=== PATIENT | female | born 1975 | race American Indian/Alaskan Native ===

== ENCOUNTER 2020-05-26 11:08 | Inpatient (IN) | payer OTHER ==
[2020-05-26] MEDS: traZODone 50 MG TAB PO SCH (22:48)
[2020-05-26] MEDS: MELATONIN 5 MG TAB PO PRN (22:48)
[2020-05-26] MEDS: OMEGA-3 FATTY ACIDS/FISH OIL 1 GRAM CAP PO SCH (22:48)
[2020-05-26] MEDS ORDERED: atenoloL 50 MG TAB PO SCH (23:10)
[2020-05-27 00:33] LABS: Basophils % (Auto) 0.3 % (0.0-1.8); Eosinophils # (Auto) 0.1 K/mm3 (0.0-0.4); Eosinophils % (Auto) 0.7 % (0.0-4.3); Hematocrit 42.5 % (30.3-42.9); Hemoglobin 14.3 gm/dl (10.1-14.3); Lymphocytes # (Auto) 2.3 K/mm3 (1.2-5.4); Lymphocytes % (Auto) 25.5 % (13.4-35.0); Mean Corpuscular HGB Conc 34 % (30-34); Mean Corpuscular Volume 87 fl (79-97); Monocytes # (Auto) 0.5 K/mm3 (0.0-0.8); Monocytes % (Auto) 5.6 % (0.0-7.3); Platelet Count 240 K/mm3 (140-440); Red Blood Count 4.87 M/mm3 (3.65-5.03); Red Cell Distribution Width 13.9 % (13.2-15.2)
[2020-05-27 04:05] LABS: Alanine Aminotransferase 16 units/L (7-56); Albumin 4.7 g/dL (3.9-5); BUN/Creatinine Ratio 13; Blood Urea Nitrogen 10 mg/dL (7-17); Calcium 9.3 mg/dL (8.4-10.2); HDL Cholesterol 56 mg/dL (40-59); Hemolysis Index 4; LDL Cholesterol,Direct 102 mg/dL (50-130)
--- NOTE | 2020-05-27 09:14 | History and Physical Report ---
GP History & Physical - History of Present Illness Date of admission: 05/26/20 Date of Examination: 05/27/20 Reason for Admission: Danger to self, Severe anxiety/depression History of Present Illness: HPI Patient is a 45-year-old employed, -[place] female with child currently resides with who was admitted from another hospital emergency department in which she had initially presented with overdose. 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 Review of medical records from outside facility, patient reported taking 89 of Xanax around 5 PM on the day of presentation, because of generalized feeling of being overwhelmed and tired of everything that she just wanted to end it all. PAST PSYCHIATRIC HISTORY Diagnoses: Depression and Anxiety Suicide attempts or Self-harm behavior: New incident Prior psychiatric hospitalizations: no Substance Abuse history: none reported Previous psychiatric medications tried: Xanax Outpatient treatment: none, desire for one PAST MEDICAL HISTORY: Asthma and HTN Family Psychiatric History: None reported or documented SOCIAL HISTORY Marital Status: Living Arrangements: with Employment Status: Employed Access to guns/weapons: none reported Education: Masters History of Abuse: none Legal History: yes REVIEW OF SYSTEMS Constitutional: Negative for weight loss ENT: Negative for stridor Respiratory: Negative for cough or hemoptysis All other systems reviewed and are negative MENTAL STATUS EXAMINATION General Appearance and Behavior: Age appropriate, good hygiene, wearing appropriate clothes, good eye contact, cooperative polite with questioning. Cooperation: Participating/engaged Psychomotor Behavior: unremarkable and within normal limits Mood: Good Affect and affective range: congruent with mood Thought Process: Fluent/Logical, Thought Content: Within reality, Speech: Normal volume, Regular rate and rhythm, Intellectual Functioning: Average Suicidal Ideation: Denies SI Homicidal Ideation: Denies HI Impulse Control: Unimpaired Insight and Judgment: Normal insight and judgment, Memory: Normal, Attention: Normal, Orientation: Alert, oriented and anxious Assessment and Plan - Psychiatric problem (1) Depressed Current Visit: Yes Status: Acute F32.9 Treatment Plan Monitor for observation Patient admitted for inpatient psychiatric evaluation, medication adjustment and close monitoring The patient's behavior, mood, sleep and appetite will be closely monitored. Patient enrolled in individual and group therapeutic sessions and encouraged to attend. Patient provided with a safe and structured environment. Patient's physical health needs will be addressed by the Hospitalist. Hospitalist Consulted Labs including CBC, CMP, Lipid profile and Hemoglobin A1C levels ordered for baseline reference Social Assessment will be completed and the Director Global Sales will work with patient and family to ensure a suitable and safe disposition Medication adjustment will be made as clinically indicated Usual Wellness Anabaptist/Preservation: - Start Trazodone 50 mg po QHS & 50 mg po QHS PRN between 10 PM & 2 AM for insomnia - Start Melatonin 5 mg po QHS to promote circadian rhythm - Start [place]-3 for brain health, reduce impulsivity, and as adjunctive treatment for mood disorder, continue upon discharge given overall benefits. - Start B1 prophylaxis with 200 mg po for 5 days The patient agreed on the treatment plan, understood the risk, benefit, alternative treatment, potential consequence of no treatment, and gave informed consent. Initial Certification Inpatient psych services: I certify that the inpatient psychiatric services are required for treatment that could reasonably be expected to improve the patient's condition. Estimated days: 7 Post hospital care: primary care provider, psychiatric provider Legal Status: Voluntary Patient Problems: Current Active Problems Depressed (Acute) Reaction to Hospitalization: Accepting Medications and Allergies Allergies Allergy/AdvReac Type Severity Reaction Status Date / Time Penicillins Allergy Unknown Unknown Verified 05/26/20 21:47 Home Medications Medication Instructions Recorded Confirmed Last Taken Type ALPRAZolam [Xanax TAB] 0.25 mg PO TID PRN 05/27/20 05/27/20 Unknown History atenoloL [Tenormin] 50 mg PO QHS 05/27/20 05/27/20 Unknown History traZODone [Desyrel] 150 mg PO QHS 05/27/20 05/27/20 Unknown History Active Meds: Active Medications Atenolol (Atenolol 50 Mg Tab) 50 mg PO HS [facility] Last Admin: 05/26/20 23:07 Dose: 50 mg Documented by: Fish Oil ([place]-3 Fatty Acids/Fish Oil 1 Gram Cap) 2,000 mg PO BID [facility] Last Admin: 05/26/20 22:48 Dose: 2,000 mg Documented by: Fluoxetine HCl (Fluoxetine 10 Mg Tab) 10 mg PO QDAY [facility] Melatonin (Melatonin 5 Mg Tab) 5 mg PO QHS PRN PRN Reason: Sleep Last Admin: 05/26/20 22:48 Dose: 5 mg Documented by: Trazodone HCl (Trazodone 50 Mg Tab) 50 mg PO QHS [facility] Last Admin: 05/26/20 22:48 Dose: 50 mg Documented by: Results - Results Labs/Vitals: Laboratory Last Values WBC 9.0 K/mm3 (4.5-11.0) 05/26/20 23:24 RBC 4.87 M/mm3 (3.65-5.03) 05/26/20 23:24 Hgb 14.3 gm/dl (10.1-14.3) 05/26/20 23:24 Hct 42.5 % (30.3-42.9) 05/26/20 23:24 MCV 87 fl (79-97) 05/26/20 23:24 MCH 29 pg (28-32) 05/26/20 23:24 MCHC 34 % (30-34) 05/26/20 23:24 RDW 13.9 % (13.2-15.2) 05/26/20 23:24 Plt Count 240 K/mm3 (140-440) 05/26/20 23:24 Lymph % (Auto) 25.5 % (13.4-35.0) 05/26/20 23:24 [place] % (Auto) 5.6 % (0.0-7.3) 05/26/20 23:24 Eos % (Auto) 0.7 % (0.0-4.3) 05/26/20 23:24 Baso % (Auto) 0.3 % (0.0-1.8) 05/26/20 23:24 Lymph # (Auto) 2.3 K/mm3 (1.2-5.4) 05/26/20 23:24 [place] # (Auto) 0.5 K/mm3 (0.0-0.8) 05/26/20 23:24 Eos # (Auto) 0.1 K/mm3 (0.0-0.4) 05/26/20 23:24 Baso # (Auto) 0.0 K/mm3 (0.0-0.1) 05/26/20 23:24 Seg Neutrophils % 67.9 % (40.0-70.0) 05/26/20 23:24 Seg Neutrophils # 6.1 K/mm3 (1.8-7.7) 05/26/20 23:24 Sodium 134 mmol/L (137-145) L 05/26/20 23:24 Potassium 3.8 mmol/L (3.6-5.0) 05/26/20 23:24 Chloride 100.3 mmol/L (98-107) 05/26/20 23:24 Carbon Dioxide 20 mmol/L (22-30) L 05/26/20 23:24 Anion Gap 18 mmol/L 05/26/20 23:24 BUN 10 mg/dL (7-17) 05/26/20 23:24 Creatinine 0.8 mg/dL (0.6-1.2) 05/26/20 23:24 Estimated GFR > 60 ml/min 05/26/20 23:24 BUN/Creatinine Ratio 13 % 05/26/20 23:24 Glucose 149 mg/dL (65-100) H 05/26/20 23:24 POC Glucose 90 mg/dL (70-105) 05/26/20 22:09 Hemoglobin A1c 5.9 % (4-6) 05/26/20 23:24 Calcium 9.3 mg/dL (8.4-10.2) 05/26/20 23:24 Total Bilirubin 0.30 mg/dL (0.1-1.2) 05/26/20 23:24 AST 16 units/L (5-40) 05/26/20 23:24 ALT 16 units/L (7-56) 05/26/20 23:24 Alkaline Phosphatase 62 units/L (35-129) 05/26/20 23:24 Total Protein 8.1 g/dL (6.3-8.2) 05/26/20 23:24 Albumin 4.7 g/dL (3.9-5) 05/26/20 23:24 Albumin/Globulin Ratio 1.4 % 05/26/20 23:24 Triglycerides 40 mg/dL (2-149) 05/26/20 23:24 Cholesterol 157 mg/dL (50-199) 05/26/20 23:24 LDL Cholesterol Direct 102 mg/dL (50-130) 05/26/20 23:24 HDL Cholesterol 56 mg/dL (40-59) 05/26/20 23:24 Cholesterol/HDL Ratio 2.80 % 05/26/20 23:24 TSH 1.550 mlU/mL (0.270-4.200) 05/26/20 23:24 Last Vital Signs Temp 98.5 F 05/27/20 07:53 Pulse 83 05/27/20 07:53 Resp 18 05/27/20 07:53 BP 131/92 05/27/20 07:53 Pulse Ox 99 05/27/20 07:53 Physical Examination - Constitutional Vitals: Vital Signs Temp Pulse Resp BP Pulse Ox 98.5 F 83 18 131/92 99 05/27/20 07:53 05/27/20 07:53 05/27/20 07:53 05/27/20 07:53 05/27/20 07:53 Temperature -Last 24 Hours Temperature 98.5 F Temperature 98.8 F Mental Status Exam - Vital signs Last Vital Signs Temp 98.5 F 05/27/20 07:53 Pulse 83 05/27/20 07:53 Resp 18 05/27/20 07:53 BP 131/92 05/27/20 07:53 Pulse Ox 99 05/27/20 07:53 Assessment and Plan - Psychiatric problem (1) Depressed Current Visit: Yes Status: Acute Physician Certification - Certification Statement Physician Certification Statement: This is an acknowledgement statement that EMIGDIO HERNANDEZ is a 45 year old F who requires inpatient psychiatric admission for treatment which could reasonably be expected to improve the patient's condition for Estimated period of time patient will need to remain in the hospital: [ ] Plan for post-hospital care: [ ]
[2020-05-27] MEDS: OMEGA-3 FATTY ACIDS/FISH OIL 1 GRAM CAP PO SCH ×2 (09:15→21:10)
[2020-05-27] MEDS ORDERED: FLUoxetine 10 MG TAB PO SCH (10:00)
[2020-05-27] MEDS: SERTRALINE 25 MG TAB PO SCH (10:33)
[2020-05-27] MEDS ORDERED: ALPRAZolam 0.25 MG TAB PO PRN (11:00)
--- NOTE | 2020-05-27 15:42 | Consultation ---
History of Present Illness - Reason for Consult Consult date: 05/27/20 medical Management Requesting physician: SUNIL NORMAN - History of Present Illness 45 YO Female with HTN, Obesity, Depression admitted to [facility] for psychiatric stabilization. Consult placed by Dr. Norman for medical management. Pt seen and evaluated in the recreation room. Pt denies fever, chills, chest pain, palpitations, productive cough, skin rash, recent ill contacts, or known e xposure to COVID 19. No reported nursing events. Past History Past Medical History: hypertension, other (see hpi) Past Surgical History: No surgical history, Other (reviewed) Social history: single. denies: smoking, alcohol abuse Family history: diabetes, hypertension Medications and Allergies Allergies Allergy/AdvReac Type Severity Reaction Status Date / Time Penicillins Allergy Unknown Unknown Verified 05/26/20 21:47 Home Medications Medication Instructions Recorded Confirmed Last Taken Type ALPRAZolam [Xanax TAB] 0.25 mg PO TID PRN 05/27/20 05/27/20 Unknown History atenoloL [Tenormin] 50 mg PO QHS 05/27/20 05/27/20 Unknown History traZODone [Desyrel] 150 mg PO QHS 05/27/20 05/27/20 Unknown History Active Meds: Active Medications Alprazolam (Alprazolam 0.25 Mg Tab) 0.25 mg PO Q8H PRN PRN Reason: Anxiety Atenolol (Atenolol 50 Mg Tab) 50 mg PO HS [facility] Last Admin: 05/26/20 23:07 Dose: 50 mg Documented by: Fish Oil ([place]-3 Fatty Acids/Fish Oil 1 Gram Cap) 2,000 mg PO BID [facility] Last Admin: 05/27/20 09:15 Dose: 2,000 mg Documented by: Melatonin (Melatonin 5 Mg Tab) 5 mg PO QHS PRN PRN Reason: Sleep Last Admin: 05/26/20 22:48 Dose: 5 mg Documented by: Sertraline HCl (Sertraline 25 Mg Tab) 25 mg PO QDAY [facility] Last Admin: 05/27/20 10:33 Dose: 25 mg Documented by: Trazodone HCl (Trazodone 50 Mg Tab) 50 mg PO QHS [facility] Last Admin: 05/26/20 22:48 Dose: 50 mg Documented by: Review of Systems Constitutional: no weight loss, no weight gain, no fever, no chills Ears, nose, mouth and throat: no ear pain, no ear discharge, no tinnitis, no nose pain Breasts: no change in shape, no swelling, no mass Cardiovascular: no chest pain, no orthopnea, no palpitations, no rapid/irregular heart beat, no edema, no syncope, no lightheadedness Respiratory: no cough, no excessive sputum, no hemoptysis, no shortness of breath Gastrointestinal: no abdominal pain, no nausea, no vomiting, no constipation Genitourinary Female: no pelvic pain, no flank pain, no dysuria, no urinary frequency, no urgency Rectal: no pain, no incontinence, no bleeding Musculoskeletal: no neck stiffness, no neck pain, no shooting arm pain, no arm numbness/tingling, no shooting leg pain, no redness of joints Integumentary: no rash, no pruritis, no redness, no sores, no wounds, no jaundice, no boils Neurological: no head injury, no paralysis, no parathesias, no numbness, no tingling, no seizures, no syncope Psychiatric: depression, no anxiety, no sleep disturbances, no insomnia, no hypersomnia, no change in libido, no suicidal ideation Endocrine: no polyphagia, no flushing Hematologic/Lymphatic: no easy bleeding, no lymphadenopathy Allergic/Immunologic: no urticaria, no persistent infections, no anaphylaxis, no angioedema Exam - Constitutional Vitals: Temp Pulse Resp BP Pulse Ox 98.5 F 83 18 131/92 99 05/27/20 07:53 05/27/20 07:53 05/27/20 07:53 05/27/20 07:53 05/27/20 07:53 General appearance: Present: no acute distress, well-nourished - EENT Eyes: Present: PERRL ENT: hearing intact, clear oral mucosa - Neck Neck: Present: supple, normal ROM - Respiratory Respiratory effort: normal Respiratory: bilateral: CTA - Cardiovascular Heart Sounds: Present: S1 & S2. Absent: rub, click - Extremities Extremities: pulses symmetrical, No edema Peripheral Pulses: within normal limits - Abdominal General gastrointestinal: Present: soft, non-tender, non-distended, normal bowel sounds Female genitourinary: Present: normal - Integumentary Integumentary: Present: clear, warm, dry - Musculoskeletal Musculoskeletal: gait normal, strength equal bilaterally - Psychiatric Psychiatric: appropriate mood/affect, intact judgment & insight - Neurologic Neurologic: CNII-XII intact, moves all extremities Results - Labs CBC & Chem 7: 05/26/20 23:24 05/26/20 23:24 Labs: Abnormal lab results 05/26/20 Range/Units 23:24 Sodium 134 L (137-145) mmol/L Carbon Dioxide 20 L (22-30) mmol/L Glucose 149 H (65-100) mg/dL Assessment and Plan - Patient Problems (1) HTN (hypertension) Current Visit: Yes Status: Acute Qualifiers: Hypertension type: essential hypertension Qualified Code(s): I10 - Essential (primary) hypertension Plan to address problem: Monitor BP q shift, continue medical management. (2) GERD (gastroesophageal reflux disease) Current Visit: Yes Status: Acute Qualifiers: Esophagitis presence: without esophagitis Qualified Code(s): K21.9 - Gastro-esophageal reflux disease without esophagitis Plan to address problem: PPI therapy, supportive care.
[2020-05-27] MEDS: atenoloL 50 MG TAB PO SCH (21:09)
[2020-05-27] MEDS: traZODone 50 MG TAB PO SCH (21:10)
[2020-05-28] MEDS: SERTRALINE 25 MG TAB PO SCH (09:05)
[2020-05-28] MEDS: OMEGA-3 FATTY ACIDS/FISH OIL 1 GRAM CAP PO SCH ×2 (09:05→21:09)
--- NOTE | 2020-05-28 09:32 | Progress Note ---
Subjective Date of service: 05/28/20 Principal diagnosis: MHE Subjective Comment: Psych NUrse: Pt received sitting quietly in the activity room. A&OX4. Denies pain, SI, and HI. No acute distress or behavioral issue observed. Will continue to monitor. Psych Progress Patient seen this a.m., patient denies any mood disturbances, denies SI HI auditory visual hallucinations. Patient does state that she did not sleep well overnight and did not seem trazodone that she was given her helped with sleep much otherwise she has no other acute complaints this AM. Reason for continued psych inpatient hospitalization: Planning for safety discharge REVIEW OF SYSTEMS Constitutional: Negative for weight loss ENT: Negative for stridor Respiratory: Negative for cough or hemoptysis All other systems reviewed and are negative MENTAL STATUS EXAMINATION General Appearance and Behavior: Age appropriate, good hygiene, wearing appropriate clothes, good eye contact, cooperative polite with questioning. Cooperation: Participating/engaged Psychomotor Behavior: unremarkable and within normal limits Mood: Good Affect and affective range: congruent with mood Thought Process: Fluent/Logical, Thought Content: Within reality, Speech: Normal volume, Regular rate and rhythm, Intellectual Functioning: Average Suicidal Ideation: Denies SI Homicidal Ideation: Denies HI Impulse Control: Unimpaired Insight and Judgment: Normal insight and judgment, Memory: Normal, Attention: Normal, Orientation: Alert, oriented and anxious Assessment and Plan - Psychiatric problem (1) Depressed Current Visit: Yes Status: Acute F32.9 Treatment Plan Monitor for observation Patient admitted for inpatient psychiatric evaluation, medication adjustment and close monitoring The patient's behavior, mood, sleep and appetite will be closely monitored. Patient enrolled in individual and group therapeutic sessions and encouraged to attend. Patient provided with a safe and structured environment. Patient's physical health needs will be addressed by the Hospitalist. Hospitalist Consulted Labs including CBC, CMP, Lipid profile and Hemoglobin A1C levels ordered for baseline reference Social Assessment will be completed and the Coat Check Attendant will work with patient and family to ensure a suitable and safe disposition Medication adjustment will be made as clinically indicated Usual Wellness Scientology/Preservation: - Start Trazodone 50 mg po QHS & 50 mg po QHS PRN between 10 PM & 2 AM for insomnia - Start Melatonin 5 mg po QHS to promote circadian rhythm - Start [place]-3 for brain health, reduce impulsivity, and as adjunctive treatment for mood disorder, continue upon discharge given overall benefits. - Start B1 prophylaxis with 200 mg po for 5 days The patient agreed on the treatment plan, understood the risk, benefit, alternative treatment, potential consequence of no treatment, and gave informed consent. Initial Certification Inpatient psych services: I certify that the inpatient psychiatric services are required for treatment that could reasonably be expected to improve the patient's condition. Estimated days: 7 Post hospital care: primary care provider, psychiatric provider Assessment and Plan - Patient Problems (1) Depressed Current Visit: Yes Status: Acute Medications and Allergies Allergies Allergy/AdvReac Type Severity Reaction Status Date / Time Penicillins Allergy Unknown Unknown Verified 05/26/20 21:47 Home Medications Medication Instructions Recorded Confirmed Last Taken Type ALPRAZolam [Xanax TAB] 0.25 mg PO TID PRN 05/27/20 05/27/20 Unknown History atenoloL [Tenormin] 50 mg PO QHS 05/27/20 05/27/20 Unknown History traZODone [Desyrel] 150 mg PO QHS 05/27/20 05/27/20 Unknown History Active Meds: Active Medications Alprazolam (Alprazolam 0.25 Mg Tab) 0.25 mg PO Q8H PRN PRN Reason: Anxiety Atenolol (Atenolol 50 Mg Tab) 50 mg PO QHS [facility] Last Admin: 05/27/20 21:09 Dose: 50 mg Documented by: Fish Oil ([place]-3 Fatty Acids/Fish Oil 1 Gram Cap) 2,000 mg PO BID [facility] Last Admin: 05/28/20 09:05 Dose: 2,000 mg Documented by: Melatonin (Melatonin 5 Mg Tab) 5 mg PO QHS PRN PRN Reason: Sleep Last Admin: 05/26/20 22:48 Dose: 5 mg Documented by: Sertraline HCl (Sertraline 25 Mg Tab) 25 mg PO QDAY [facility] Last Admin: 05/28/20 09:05 Dose: 25 mg Documented by: Trazodone HCl (Trazodone 50 Mg Tab) 50 mg PO QHS [facility] Last Admin: 05/27/20 21:10 Dose: 50 mg Documented by: Results - Results Labs/Vitals: Laboratory Last Values WBC 9.0 K/mm3 (4.5-11.0) 05/26/20 23:24 RBC 4.87 M/mm3 (3.65-5.03) 05/26/20 23:24 Hgb 14.3 gm/dl (10.1-14.3) 05/26/20 23:24 Hct 42.5 % (30.3-42.9) 05/26/20 23:24 MCV 87 fl (79-97) 05/26/20 23:24 MCH 29 pg (28-32) 05/26/20 23:24 MCHC 34 % (30-34) 05/26/20 23:24 RDW 13.9 % (13.2-15.2) 05/26/20 23:24 Plt Count 240 K/mm3 (140-440) 05/26/20 23:24 Lymph % (Auto) 25.5 % (13.4-35.0) 05/26/20 23:24 [place] % (Auto) 5.6 % (0.0-7.3) 05/26/20 23:24 Eos % (Auto) 0.7 % (0.0-4.3) 05/26/20 23:24 Baso % (Auto) 0.3 % (0.0-1.8) 05/26/20 23:24 Lymph # (Auto) 2.3 K/mm3 (1.2-5.4) 05/26/20 23:24 [place] # (Auto) 0.5 K/mm3 (0.0-0.8) 05/26/20 23:24 Eos # (Auto) 0.1 K/mm3 (0.0-0.4) 05/26/20 23:24 Baso # (Auto) 0.0 K/mm3 (0.0-0.1) 05/26/20 23:24 Seg Neutrophils % 67.9 % (40.0-70.0) 05/26/20 23:24 Seg Neutrophils # 6.1 K/mm3 (1.8-7.7) 05/26/20 23:24 Sodium 134 mmol/L (137-145) L 05/26/20 23:24 Potassium 3.8 mmol/L (3.6-5.0) 05/26/20 23:24 Chloride 100.3 mmol/L (98-107) 05/26/20 23:24 Carbon Dioxide 20 mmol/L (22-30) L 05/26/20 23:24 Anion Gap 18 mmol/L 05/26/20 23:24 BUN 10 mg/dL (7-17) 05/26/20 23:24 Creatinine 0.8 mg/dL (0.6-1.2) 05/26/20 23:24 Estimated GFR > 60 ml/min 05/26/20 23:24 BUN/Creatinine Ratio 13 % 05/26/20 23:24 Glucose 149 mg/dL (65-100) H 05/26/20 23:24 POC Glucose 90 mg/dL (70-105) 05/26/20 22:09 Hemoglobin A1c 5.9 % (4-6) 05/26/20 23:24 Calcium 9.3 mg/dL (8.4-10.2) 05/26/20 23:24 Total Bilirubin 0.30 mg/dL (0.1-1.2) 05/26/20 23:24 AST 16 units/L (5-40) 05/26/20 23:24 ALT 16 units/L (7-56) 05/26/20 23:24 Alkaline Phosphatase 62 units/L (35-129) 05/26/20 23:24 Total Protein 8.1 g/dL (6.3-8.2) 05/26/20 23:24 Albumin 4.7 g/dL (3.9-5) 05/26/20 23:24 Albumin/Globulin Ratio 1.4 % 05/26/20 23:24 Triglycerides 40 mg/dL (2-149) 05/26/20 23:24 Cholesterol 157 mg/dL (50-199) 05/26/20 23:24 LDL Cholesterol Direct 102 mg/dL (50-130) 05/26/20 23:24 HDL Cholesterol 56 mg/dL (40-59) 05/26/20 23:24 Cholesterol/HDL Ratio 2.80 % 05/26/20 23:24 TSH 1.550 mlU/mL (0.270-4.200) 05/26/20 23:24 Last Vital Signs Temp 98.4 F 05/28/20 08:20 Pulse 83 05/28/20 08:18 Resp 18 05/28/20 08:20 BP 130/97 05/28/20 08:20 Pulse Ox 93 05/28/20 08:18
[2020-05-28] MEDS: atenoloL 50 MG TAB PO SCH (21:10)
[2020-05-28] MEDS: MELATONIN 5 MG TAB PO PRN (21:27)
[2020-05-28] MEDS ORDERED: traZODone 50 MG TAB PO SCH (22:00)
--- NOTE | 2020-05-29 08:28 | Progress Note ---
Subjective Date of service: 05/29/20 Principal diagnosis: (1) Depressed Subjective Comment: Psych NUrse: Patient presents as superficially bright. She is pleasant and cooperative with care. She denies si/hi/ah/vh. She interacts well with peers and staff. Patient is medication compliant. Will continue to monitor patient for safety. Psych Progress Patient describes a good and stable mood, denies being depressed or excessively nervous. Patient eats and sleeps well. Patient denies panic attacks, recurrent nightmares or flashbacks. Patient denies symptoms suggestive of OCD or PTSD. Patient denies hallucinations, paranoia, thought interference and no features suggestive of hypomania or vinayak. Patiently completely denies suicidal or homicidal thoughts. Reason for continued psych inpatient hospitalization: Planning for safety d ischarge REVIEW OF SYSTEMS Constitutional: Negative for weight loss ENT: Negative for stridor Respiratory: Negative for cough or hemoptysis All other systems reviewed and are negative MENTAL STATUS EXAMINATION General Appearance and Behavior: Age appropriate, good hygiene, wearing appropriate clothes, good eye contact, cooperative polite with questioning. Cooperation: Participating/engaged Psychomotor Behavior: unremarkable and within normal limits Mood: Good Affect and affective range: congruent with mood Thought Process: Fluent/Logical, Thought Content: Within reality, Speech: Normal volume, Regular rate and rhythm, Intellectual Functioning: Average Suicidal Ideation: Denies SI Homicidal Ideation: Denies HI Impulse Control: Unimpaired Insight and Judgment: Normal insight and judgment, Memory: Normal, Attention: Normal, Orientation: Alert, oriented and anxious Assessment and Plan - Psychiatric problem (1) Depressed Current Visit: Yes Status: Acute F32.9 Treatment Plan Monitor for observation Patient admitted for inpatient psychiatric evaluation, medication adjustment and close monitoring The patient's behavior, mood, sleep and appetite will be closely monitored. Patient enrolled in individual and group therapeutic sessions and encouraged to attend. Patient provided with a safe and structured environment. Patient's physical health needs will be addressed by the Hospitalist. Hospitalist Consulted Labs including CBC, CMP, Lipid profile and Hemoglobin A1C levels ordered for baseline reference Social Assessment will be completed and the Wheel Grinder will work with patient and family to ensure a suitable and safe disposition Medication adjustment will be made as clinically indicated Usual Wellness Alevism/Preservation: - Start Trazodone 50 mg po QHS & 50 mg po QHS PRN between 10 PM & 2 AM for insomnia - Start Melatonin 5 mg po QHS to promote circadian rhythm - Start [place]-3 for brain health, reduce impulsivity, and as adjunctive treatment for mood disorder, continue upon discharge given overall benefits. - Start B1 prophylaxis with 200 mg po for 5 days The patient agreed on the treatment plan, understood the risk, benefit, alternative treatment, potential consequence of no treatment, and gave informed consent. Initial Certification Inpatient psych services: I certify that the inpatient psychiatric services are required for treatment that could reasonably be expected to improve the patient's condition. Estimated days: 7 Post hospital care: primary care provider, psychiatric provider Assessment and Plan - Patient Problems (1) Depressed Current Visit: Yes Status: Acute Medications and Allergies Allergies Allergy/AdvReac Type Severity Reaction Status Date / Time Penicillins Allergy Unknown Unknown Verified 05/26/20 21:47 Home Medications Medication Instructions Recorded Confirmed Last Taken Type ALPRAZolam [Xanax TAB] 0.25 mg PO TID PRN 05/27/20 05/27/20 Unknown History atenoloL [Tenormin] 50 mg PO QHS 05/27/20 05/27/20 Unknown History traZODone [Desyrel] 150 mg PO QHS 05/27/20 05/27/20 Unknown History Active Meds: Active Medications Alprazolam (Alprazolam 0.25 Mg Tab) 0.25 mg PO Q8H PRN PRN Reason: Anxiety Atenolol (Atenolol 50 Mg Tab) 50 mg PO QHS [facility] Last Admin: 05/28/20 21:10 Dose: 50 mg Documented by: Fish Oil ([place]-3 Fatty Acids/Fish Oil 1 Gram Cap) 2,000 mg PO BID [facility] Last Admin: 05/28/20 21:09 Dose: 2,000 mg Documented by: Melatonin (Melatonin 5 Mg Tab) 5 mg PO QHS PRN PRN Reason: Sleep Last Admin: 05/28/20 21:27 Dose: 5 mg Documented by: Sertraline HCl (Sertraline 25 Mg Tab) 25 mg PO QDAY [facility] Last Admin: 05/28/20 09:05 Dose: 25 mg Documented by: Trazodone HCl (Trazodone 50 Mg Tab) 100 mg PO QHS [facility] Last Admin: 05/28/20 21:10 Dose: 100 mg Documented by: Results - Results Labs/Vitals: Laboratory Last Values WBC 9.0 K/mm3 (4.5-11.0) 05/26/20 23: RBC 4.87 M/mm3 (3.65-5.03) 05/26/20 23: Hgb 14.3 gm/dl (10.1-14.3) 05/26/20 23:24 Hct 42.5 % (30.3-42.9) 05/26/20 23:24 MCV 87 fl (79-97) 05/26/20 23: MCH 29 pg (28-32) 05/26/20 23: MCHC 34 % (30-34) 05/26/20 23: RDW 13.9 % (13.2-15.2) 05/26/20: Plt Count 240 K/mm3 (140-440) 05/26/20: Lymph % (Auto) 25.5 % (13.4-35.0) 05/26/20 23: [place] % (Auto) 5.6 % (0.0-7.3) 05/26/20: Eos % (Auto) 0.7 % (0.0-4.3) 05/26/20: Baso % (Auto) 0.3 % (0.0-1.8) 05/26/20: Lymph # (Auto) 2.3 K/mm3 (1.2-5.4) 05/26/20: [place] # (Auto) 0.5 K/mm3 (0.0-0.8) 05/26/20: Eos # (Auto) 0.1 K/mm3 (0.0-0.4) 05/26/20: Baso # (Auto) 0.0 K/mm3 (0.0-0.1) 05/26/20: Seg Neutrophils % 67.9 % (40.0-70.0) 05/26/20: Seg Neutrophils # 6.1 K/mm3 (1.8-7.7) 05/26/20 23: Sodium 134 mmol/L (137-145) L 05/26/20:24 Potassium 3.8 mmol/L (3.6-5.0) 05/26/20: Chloride 100.3 mmol/L (98-107) 05/26/20 23:24 Carbon Dioxide 20 mmol/L (22-30) L 05/26/20 23:24 Anion Gap 18 mmol/L 05/26/20 23:24 BUN 10 mg/dL (7-17) 05/26/20 23:24 Creatinine 0.8 mg/dL (0.6-1.2) 05/26/20 23:24 Estimated GFR > 60 ml/min 05/26/20 23:24 BUN/Creatinine Ratio 13 % 05/26/20 23:24 Glucose 149 mg/dL (65-100) H 05/26/20 23:24 POC Glucose 90 mg/dL (70-105) 05/26/20 22:09 Hemoglobin A1c 5.9 % (4-6) 05/26/20 23:24 Calcium 9.3 mg/dL (8.4-10.2) 05/26/20 23:24 Total Bilirubin 0.30 mg/dL (0.1-1.2) 05/26/20 23:24 AST 16 units/L (5-40) 05/26/20 23:24 ALT 16 units/L (7-56) 05/26/20 23:24 Alkaline Phosphatase 62 units/L (35-129) 05/26/20 23:24 Total Protein 8.1 g/dL (6.3-8.2) 05/26/20 23:24 Albumin 4.7 g/dL (3.9-5) 05/26/20 23:24 Albumin/Globulin Ratio 1.4 % 05/26/20 23:24 Triglycerides 40 mg/dL (2-149) 05/26/20 23:24 Cholesterol 157 mg/dL (50-199) 05/26/20 23:24 LDL Cholesterol Direct 102 mg/dL (50-130) 05/26/20 23:24 HDL Cholesterol 56 mg/dL (40-59) 05/26/20 23:24 Cholesterol/HDL Ratio 2.80 % 05/26/20 23:24 TSH 1.550 mlU/mL (0.270-4.200) 05/26/20 23:24 Last Vital Signs Temp 98.7 F 05/28/20 19:24 Pulse 66 05/28/20 21:10 Resp 16 05/28/20 19:24 BP 143/84 05/28/20 21:10 Pulse Ox 100 05/28/20 19:24
[2020-05-29 09:06] VITALS: BP 131/79
[2020-05-29] MEDS: OMEGA-3 FATTY ACIDS/FISH OIL 1 GRAM CAP PO SCH (09:26)
[2020-05-29] MEDS: SERTRALINE 25 MG TAB PO SCH (09:26)
--- NOTE | 2020-05-29 11:06 | Discharge Summary ---
Providers - Providers Date of Admission: 05/26/20 21:32 Date of discharge: 05/29/20 Attending physician: SUNIL NORMAN MD 05/26/20 13:38 Consult to Physician [CONS] Routine Comment: Consulting Provider: SONAM PARKS Physician Instructions: Reason For Exam: Medical Management Primary care physician: PASTRY COOK APPRENTICE Hospitalization Reason for admission: MDD Condition: Good Hospital course: The patient was provided inpatient psychiatric treatment with safe and supportive environment, group/individual therapy, psychiatric medication, medication adjustment, adverse effect monitor, medical evaluation, medical treatment, social service assessment, social support meeting, placement assessment and psycho-education. The patients mood, cognition, behavior, motivation, compliance to treatment and appreciation on family/social support are improved and stabilized. At the time of discharge, the patient had no suicidal ideas, no homicidal ideas, no aggressive thoughts, no endangering behavior and no debilitating adverse effects. The patient agareed on the treatment plan, understood the risk, benefit, alternative treatment, potential consequence of no treatment, and gave informed consent. Disposition: DC-01 TO HOME OR SELFCARE Allergies/Adverse Reactions: Allergies Penicillins Allergy (Unknown, Verified 05/26/20 21:47) Unknown Vital Signs: Last Vital Signs Temp 98.6 F 05/29/20 07:46 Pulse 78 05/29/20 07:46 Resp 18 05/29/20 07:46 BP 131/79 05/29/20 07:46 Pulse Ox 98 05/29/20 07:46 Last Lab: Laboratory Last Values WBC 9.0 K/mm3 (4.5-11.0) 05/26/20 23:24 RBC 4.87 M/mm3 (3.65-5.03) 05/26/20 23:24 Hgb 14.3 gm/dl (10.1-14.3) 05/26/20 23:24 Hct 42.5 % (30.3-42.9) 05/26/20 23:24 MCV 87 fl (79-97) 05/26/20 23:24 MCH 29 pg (28-32) 05/26/20 23:24 MCHC 34 % (30-34) 05/26/20 23:24 RDW 13.9 % (13.2-15.2) 05/26/20 23:24 Plt Count 240 K/mm3 (140-440) 05/26/20 23:24 Lymph % (Auto) 25.5 % (13.4-35.0) 05/26/20 23:24 [place] % (Auto) 5.6 % (0.0-7.3) 05/26/20 23:24 Eos % (Auto) 0.7 % (0.0-4.3) 05/26/20 23:24 Baso % (Auto) 0.3 % (0.0-1.8) 05/26/20 23:24 Lymph # (Auto) 2.3 K/mm3 (1.2-5.4) 05/26/20 23:24 [place] # (Auto) 0.5 K/mm3 (0.0-0.8) 05/26/20 23:24 Eos # (Auto) 0.1 K/mm3 (0.0-0.4) 05/26/20 23:24 Baso # (Auto) 0.0 K/mm3 (0.0-0.1) 05/26/20 23:24 Seg Neutrophils % 67.9 % (40.0-70.0) 05/26/20 23:24 Seg Neutrophils # 6.1 K/mm3 (1.8-7.7) 05/26/20 23:24 Sodium 134 mmol/L (137-145) L 05/26/20 23:24 Potassium 3.8 mmol/L (3.6-5.0) 05/26/20 23:24 Chloride 100.3 mmol/L (98-107) 05/26/20 23:24 Carbon Dioxide 20 mmol/L (22-30) L 05/26/20 23:24 Anion Gap 18 mmol/L 05/26/20 23:24 BUN 10 mg/dL (7-17) 05/26/20 23:24 Creatinine 0.8 mg/dL (0.6-1.2) 05/26/20 23:24 Estimated GFR > 60 ml/min 05/26/20 23:24 BUN/Creatinine Ratio 13 % 05/26/20 23:24 Glucose 149 mg/dL (65-100) H 05/26/20 23:24 POC Glucose 90 mg/dL (70-105) 05/26/20 22:09 Hemoglobin A1c 5.9 % (4-6) 05/26/20 23:24 Calcium 9.3 mg/dL (8.4-10.2) 05/26/20 23:24 Total Bilirubin 0.30 mg/dL (0.1-1.2) 05/26/20 23:24 AST 16 units/L (5-40) 05/26/20 23:24 ALT 16 units/L (7-56) 05/26/20 23:24 Alkaline Phosphatase 62 units/L (35-129) 05/26/20 23:24 Total Protein 8.1 g/dL (6.3-8.2) 05/26/20 23:24 Albumin 4.7 g/dL (3.9-5) 05/26/20 23:24 Albumin/Globulin Ratio 1.4 % 05/26/20 23:24 Triglycerides 40 mg/dL (2-149) 05/26/20 23:24 Cholesterol 157 mg/dL (50-199) 05/26/20 23:24 LDL Cholesterol Direct 102 mg/dL (50-130) 05/26/20 23:24 HDL Cholesterol 56 mg/dL (40-59) 05/26/20 23:24 Cholesterol/HDL Ratio 2.80 % 05/26/20 23:24 TSH 1.550 mlU/mL (0.270-4.200) 05/26/20 23:24 - Discharge Diagnoses (1) Depressed Status: Acute Core Measure Documentation - Palliative Care Palliative Care/ Comfort Measures: Not Applicable - Core Measures Any of the following diagnoses?: none Exam - Constitutional Vitals: Temp Pulse Resp BP Pulse Ox 98.6 F 78 18 131/79 98 05/29/20 07:46 05/29/20 07:46 05/29/20 07:46 05/29/20 07:46 05/29/20 07:46 General appearance: Present: no acute distress - EENT Eyes: Present: PERRL, EOM intact ENT: hearing intact, clear oral mucosa - Neck Neck: Present: supple, normal ROM - Respiratory Respiratory effort: normal - Abdominal General gastrointestinal: Present: deferred Female genitourinary: Present: deferred - Rectal Rectal Exam: deferred - Integumentary Integumentary: Present: clear, warm, dry Plan Care Plan Goals: Goals: Maintain good and stable mental health. Plan of Treatment: The patient should be compliant with medications, not to use drugs and not to drink alcohol. The patient understands that if suicidal ideas, homicidal ideas, or any endangering thoughts arise, the patient should immediately seek for emergent assistance including but not limited to crisis hot line and emergency room. Follow up with outpatient Psychiatrist and PCP within 7 - 14 days of discharge. Follow up with: PRIMARY CARE, [Primary Care Provider] - 7 Days Prescriptions: Sertraline [Zoloft] 25 mg PO QDAY #30 tablet
== END 2020-05-29 13:45 | disposition home or self-care (01) | DRG 881 ==
LOC: 3A 11:08 → UNDOADMIN 11:08 → 5A 21:32
PROVIDERS: ADMIT Psychiatry & Neurology Psychiatry; ATTEND Psychiatry & Neurology Psychiatry
DX: F32.9 Major depressive disorder, single episode, unspecified (principal); Z68.41 Body mass index [BMI] 40.0-44.9, adult; E66.01 Morbid (severe) obesity due to excess calories; F41.9 Anxiety disorder, unspecified; K21.9 Gastro-esophageal reflux disease without esophagitis; J45.909 Unspecified asthma, uncomplicated; I10 Essential (primary) hypertension; Z88.0 Allergy status to penicillin; Z79.899 Other long term (current) drug therapy; Z79.891 Long term (current) use of opiate analgesic; Z82.49 Family history of ischemic heart disease and other diseases of the circulatory system; Z83.3 Family history of diabetes mellitus
CPT/HCPCS: 36415; 80053; 80061; 82962; 83036; 84443; 85025; G0378